=== PATIENT | female | born 1960 | race Caucasian/White ===

== ENCOUNTER 2017-04-20 07:30 | Day surgery (SDC) | payer MEDICARE ==
[2017-04-20] MEDS ORDERED: NACL 0.9% 500 ML 500 ML ONE (09:02)
[2017-04-20 09:29] LABS: INR 1.55 (0.87-1.13)
[2017-04-20] MEDS ORDERED: NACL 0.9% 500 ML 500 ML IV SCH (10:00)
[2017-04-20] MEDS ORDERED: HURRICAINE ONE 20% TOPICAL SPRAY MM (10:44)
[2017-04-20] MEDS ORDERED: ROBINUL IV ONE (11:00)
[2017-04-20] MEDS ORDERED: VERSED IV ONE (11:00)
[2017-04-20] MEDS ORDERED: SUBLIMAZE IV ONE (11:00)
[2017-04-20] MEDS ORDERED: VERSED ONE (11:18)
[2017-04-20] MEDS ORDERED: DIPRIVAN 10 MG/ML IV ONE ×2 (11:19)
[2017-04-20] MEDS ORDERED: HURRICAINE ONE 20% TOPICAL SPRAY MM NR (12:00)
--- NOTE | 2017-04-20 12:40 | Anesthesia Consultation ---
Anesthesia Consult and Med Hx Date of service: 04/20/17 - Airway Anesthetic Teeth Evaluation: Good ROM Head & Neck: Adequate Mental/Hyoid Distance: Adequate Mallampati Class: Class II Intubation Access Assessment: Probably Good - Pulmonary Exam CTA: Yes - Cardiac Exam Cardiac Exam: RRR - Pre-Operative Health Status ASA Pre-Surgery Classification: ASA3 Proposed Anesthetic Plan: MAC - Cardiovascular System Hx Hypertension: Yes (2012) Hx Heart Attack/AMI: No Hx Cardia Arrhythmia: Yes (Afib) Hx Valvular Heart Disease: Yes (mod. mitral stenosis) - Central Nervous System CVA: Yes (2012) Hx Psychiatric Problems: No - Other Systems Hx Cancer: No - Additional Comments Anesthesia Medical History Comments: Cardiomyopathy, CHF, Afib, moderate mitral stenosis. Heart burn with food, occasional.
--- NOTE | 2017-04-20 12:40 | Anesthesia Day of Surgery ---
Anesthesia Day of Surgery - Day of Surgery Patient Examined: Yes Patient H&P Reviewed: Yes Patient is NPO: Yes
[2017-04-20 15:08] VITALS: BP 160/98
== END 2017-04-20 15:15 | disposition home or self-care (01) ==
LOC: OPU 07:30 → EDSTATUS 08:30 → OPU 15:15
DX: I08.1 Rheumatic disorders of both mitral and tricuspid valves (principal); F41.9 Anxiety disorder, unspecified; I48.91 Unspecified atrial fibrillation; I27.2 Other secondary pulmonary hypertension; I11.0 Hypertensive heart disease with heart failure; I50.22 Chronic systolic (congestive) heart failure; E66.01 Morbid (severe) obesity due to excess calories; Z68.41 Body mass index [BMI] 40.0-44.9, adult; Z98.890 Other specified postprocedural states; Z79.01 Long term (current) use of anticoagulants; Z79.899 Other long term (current) drug therapy; Z86.73 Personal history of transient ischemic attack (TIA), and cerebral infarction without residual deficits; Z82.49 Family history of ischemic heart disease and other diseases of the circulatory system
CPT/HCPCS: 36415; 85610; 93312; 93320; 93325; J2250; J2704; J7040

== ENCOUNTER 2021-08-29 07:24 | Day surgery (SDC) | payer MEDICARE ==
[2021-08-26 07:08] LABS: Basophils % (Auto) 0.4 % (0.0-1.8); Eosinophils # (Auto) 0.1 K/mm3 (0.0-0.4); Eosinophils % (Auto) 1.4 % (0.0-4.3); Hematocrit 43.3 % (30.3-42.9); Hemoglobin 14.7 gm/dl (10.1-14.3); Lymphocytes # (Auto) 2.4 K/mm3 (1.2-5.4); Lymphocytes % (Auto) 35.5 % (13.4-35.0); Mean Corpuscular HGB Conc 34 % (30-34); Mean Corpuscular Volume 98 fl (79-97); Monocytes # (Auto) 0.5 K/mm3 (0.0-0.8); Monocytes % (Auto) 7.6 % (0.0-7.3); Platelet Count 155 K/mm3 (140-440); Red Blood Count 4.44 M/mm3 (3.65-5.03); Red Cell Distribution Width 12.5 % (13.2-15.2)
[2021-08-26 07:17] LABS: INR 1.87 (0.87-1.13)
[2021-08-26 07:18] LABS: Partial Thromboplastin Time 44.1 Sec. (24.2-36.6)
[2021-08-26 07:23] LABS: BUN/Creatinine Ratio 33; Blood Urea Nitrogen 26 mg/dL (7-17); Calcium 9.3 mg/dL (8.4-10.2); Hemolysis Index 2
--- NOTE | 2021-08-26 09:13 | Electrocardiograph Report ---
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
[~2021-08-29 07:24] MED LIST: ASPIRIN EC 325 MG TAB PO ONE; SODIUM CHLORIDE 0.9% 500 ML 500 ML IV SCH
[2021-08-29] MEDS ORDERED: ASPIRIN EC 325 MG TAB PO ONE (08:07)
[2021-08-29] MEDS ORDERED: SODIUM CHLORIDE 0.9% 500 ML 500 ML ONE (08:12)
[2021-08-29 08:28] LABS: INR 1.2 (0.87-1.13)
[2021-08-29 08:29] LABS: Blood Urea Nitrogen 20 mg/dL (7-17); Hemolysis Index 14; Partial Thromboplastin Time 32.8 Sec. (24.2-36.6)
[2021-08-29 08:32] LABS: BUN/Creatinine Ratio 29
[2021-08-29] MEDS ORDERED: HEPARIN 10,000 UNITS/10 ML VIAL ONE (08:46)
[2021-08-29] MEDS ORDERED: HEPARIN/NS 5000 UNIT/500ML 1,000 ML IR ONE (08:46)
[2021-08-29] MEDS ORDERED: LIDOCAINE (2%) 20 MG/1 ML VIAL 20 ML MDV INFILTRATI ONE (08:47)
[2021-08-29] MEDS ORDERED: SODIUM CHLORIDE 0.9% 500 ML 500 ML IV SCH (09:00)
[2021-08-29] MEDS ORDERED: HEPARIN/NS 5000 UNIT/500ML 500 ML IR ONE (09:09)
[2021-08-29] MEDS ORDERED: VERAPAMIL 5 MG/2 ML INJ ONE (09:11)
[2021-08-29] MEDS ORDERED: fentaNYL 100 MCG/2 ML INJ ONE (09:12)
[2021-08-29] MEDS ORDERED: MIDAZOLAM 2 MG/2 ML INJ ONE (09:12)
[2021-08-29] MEDS ORDERED: NITROGLYCERIN SYRINGE 3 ML ONE (09:12)
[2021-08-29] MEDS ORDERED: HEPARIN/NS 5000 UNITS/500 ML BAG (CATH LAB ONLY) IR ONE ×2 (09:46)
[2021-08-29] MEDS ORDERED: fentaNYL 100 MCG/2 ML INJ IV ONE (09:58)
[2021-08-29] MEDS ORDERED: MIDAZOLAM 2 MG/2 ML INJ IV ONE (09:58)
[2021-08-29] MEDS ORDERED: VERAPAMIL 5 MG/2 ML INJ IV ONE (10:03)
[2021-08-29] MEDS ORDERED: NITROGLYCERIN 600 MCG/3 ML SYRINGE UD ONE (10:03)
[2021-08-29] MEDS ORDERED: HEPARIN 10,000 UNITS/10 ML VIAL IV ONE (10:03)
--- NOTE | 2021-08-29 10:44 | Short Stay Summary ---
Short Stay Documentation Date of service: 08/29/21 - History H&P: obtained from office - Allergies and Medications Current Medications: Allergies Penicillins Allergy (Verified 08/26/21 06:42) Nausea Home Medications Medication Instructions Recorded Confirmed Last Taken Type Digoxin [Lanoxin] 0.25 mg PO DAILY 04/20/17 08/29/21 08/27/21 History Furosemide [Lasix] 20 mg PO QDAY 08/29/21 08/29/21 08/27/21 History Loratadine [Claritin] 10 mg PO DAILY 08/29/21 08/29/21 08/27/21 History Potassium Chloride [K-Dur] 10 meq PO QDAY 08/29/21 08/29/21 08/27/21 History Spironolactone [Aldactone] 25 mg PO QDAY 08/29/21 08/29/21 08/27/21 History Warfarin [Coumadin] 6 mg PO DAILY 08/29/21 08/29/21 08/21/21 History bisoproloL fumarate [Bisoprolol 10 mg PO DAILY 08/29/21 08/29/21 08/27/21 History Fumarate] lisinopriL [Lisinopril] 20 mg PO DAILY 08/29/21 08/29/21 08/27/21 History Active Medications Sodium Chloride (Nacl 0.9% 500 Ml) 500 mls @ 50 mls/hr IV DIRECT ELIAS Stop: 08/29/21 23:00 - Physical exam Integumentary: other (dressing clean,dry and intact. No bleed or hematoma) - Brief post op/procedure progress note Date of procedure: 08/29/21 Pre-op diagnosis: Mitral stenosis, CAD, SOB Post-op diagnosis: same Anesthesia: local Estimated blood loss: minimal - Hospital course Hospital course: Patient underwent cardiac cath procedure with no complications. Patient tolerated procedure well. - Disposition Condition at discharge: Good Disposition: 01 HOME / SELF CARE / HOMELESS - Discharge Diagnoses (1) CAD (coronary artery disease) Status: Acute (2) Mitral stenosis Status: Acute (3) SOB (shortness of breath) Status: Acute Short Stay Discharge Plan Activity: advance as tolerated Diet: low fat, low cholesterol, low salt Wound: keep clean and dry, per your surgeon's advice Follow up with: PRIMARY CARE, [Primary Care Provider] - 7 Days GENEVA VANN MD [Staff Physician] - 09/08/21 10:00 am (Patient has afollow up appointment with Dr. Vann at 10am on 09/08/2021 at our [place] location. )
--- NOTE | 2021-08-29 13:04 | Cardiac Catherization Report ---
DATE OF SERVICE: 08/29/2021 LEFT AND RIGHT HEART CATHETERIZATION CLINICAL INFORMATION: This is a 60-year-old female with known mitral stenosis, having progressive more shortness of breath. An echocardiogram has revealed severe aortic stenosis, has atrial fibrillation, hypertension, hyperlipidemia, is here for left and right heart catheterization. This was done with moderate sedation, started at 9:58, finished at 10:33; 35 minutes of moderate sedation noted. Right heart catheterization was done via the right brachial vein and exchanged out for a 6-Andorran sheath. DESCRIPTION OF PROCEDURE: Left heart catheterization was done via the right radial artery, sterile technique, and local anesthesia. A 6-[place]orran radial sheath inserted. Left system engaged with a JL3.5 catheter. Left main was large and patent, bifurcates to [id number] caliber LAD, proximally is patent, mid diffuse 20-30%, distal patent. Diagonal 1 and 2 [id number] caliber and patent. Circumflex is a medium caliber vessel, patent. OM1, OM2, xmvfr-[id number] caliber vessel, patent. RCA engaged with JR4 is a large dominant vessel, diffuse 20% from proximally and distally. PDA and PLV are medium caliber vessels. LV gram done in TELUGU and ALVARES view shows normal LV function, LVEDP 24 mmHg, LV was 167, aortic is 167/95. Right heart catheterization: There was a wedge and LVEDP done, which showed LV was 180, LVEDP 26. Wedge was 31 mean, mean gradient was 10.7 at a heart rate of 66, and then the patient's PA was 65 mmHg, RV was 64 mmHg, RA was 21 mmHg. AO sat was 90%, PA sat 56%, RV sat 55%, RA sat 57%. There was no step-up and step-down. Qp/Qs was 0.97. The patient's cardiac output by Mitzy was 3.81. Cardiac index was 2.01. The patient's area of mitral valve was calculated at 1.19 cm2. All catheter was taken over guidewire. A 6-Andorran radial sheath taken out. A radial band applied. A 6-[place]orran brachial sheath was taken out; brachial pressure was applied. No hematoma, no bleeding. SUMMARY: Nonobstructive coronary artery disease. Left main patent. LAD mid diffuse 20% to 30%. Circ patent. OM1, OM2 patent. RCA large, dominant diffuse 10-20%. PDA, PLV patent. Normal LV function, LVEDP of 24 mmHg. The patient's wedge was 30 mmHg, RA was 21 mmHg, RV was 64 mmHg, PA was 65 mmHg. Cardiac index was 2.02. Cardiac output 3.81. The patient's mean gradient was 10.7 mmHg, valve area calculated 1.19 cm for mitral valve stenosis suggestive of severe mitral stenosis. The patient was referred to [facility] and discussed this with the patient and the patient's family in detail. Continue present management. TID: [id number] RECEIPT: [id number] MORAIMA/PAU
[2021-08-29 14:56] VITALS: BP 154/82
--- NOTE | 2021-08-31 11:35 | Electrocardiograph Report ---
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
== END 2021-08-29 07:25 | disposition home or self-care (01) ==
LOC: CATHLABREC 07:24
PROVIDERS: ATTEND Internal Medicine
DX: I48.21 Permanent atrial fibrillation (principal); I05.0 Rheumatic mitral stenosis; I42.0 Dilated cardiomyopathy; I11.0 Hypertensive heart disease with heart failure; I50.9 Heart failure, unspecified; E78.00 Pure hypercholesterolemia, unspecified; I25.10 Atherosclerotic heart disease of native coronary artery without angina pectoris; M19.90 Unspecified osteoarthritis, unspecified site; Z79.01 Long term (current) use of anticoagulants; Z79.899 Other long term (current) drug therapy; Z88.0 Allergy status to penicillin; Z98.890 Other specified postprocedural states; Z82.49 Family history of ischemic heart disease and other diseases of the circulatory system
CPT/HCPCS: 36415; 80048; 85025; 85610; 85730; 93005; 93460; 99156; 99157; C1894; J1644; J2250; J3010; J7040; Q9967